=== PATIENT | female | born 1970 | race Caucasian/White ===

== ENCOUNTER 2017-03-30 00:03 | Inpatient (IN) | payer SELFPAY ==
[~2017-03-30] VITALS: Ht 160 cm; Wt 62.6 kg
--- NOTE | ~2017-03-30 | DS ---
Unit #: [id number] #: [id number] Patient: ROSSANA BALLESTEROS [id number] [facility] [address] [place] [address] [id number] MR#: [id number] NAME: ROSSANA BALLESTEROS ROOM: P110 Age: 47 Sex: F Admission Date: 03/31/2017 : 1970 Discharge Date: 04/03/2017 Attending Physician: Roberto Castro M.D. Primary Care Physician: Primary Care Physician No DISCHARGE SUMMARY REASON FOR ADMISSION Depression. DIAGNOSTIC STUDIES LABORATORY DATA: Unremarkable. HOSPITAL COURSE The patient was admitted to inpatient unit on March 31 and discharged on 04/03/2017. The patient was treated with group therapy, individual therapy, and medication management. The patient was responsive to treatment, showed improvement. Subsequently, the patient was discharged with a plan to follow up in outpatient program. DISCHARGE MEDICATIONS 1. Doxepin 100 mg at bedtime for sleep. 2. Vistaril 25 mg 3 times a day for anxiety. 3. Thorazine 50 mg 3 times a day for psychosis. DISCHARGE DIAGNOSES PSYCHIATRIC: Psychosis not otherwise specified, F29.0 Rule out bipolar mood disorder. Rule out substance abuse disorder. SECONDARY: Deferred. MEDICAL: None. STRESSORS: Psychosocial stressor. FOLLOWUP CARE The patient to follow up in outpatient clinic as per social media specialist. CONDITION ON DISCHARGE The patient pleasant, cooperative. Denied any psychotic symptom or any suicidal ideation. PROGNOSIS Guarded. DIET AND ACTIVITY As tolerated. Dictated by... Roberto Castro M.D. Unit #: [id number] #: [id number] Patient: ROSSANA BALLESTEROS SAJI/bzg TD: 04/04/2017 07:15 JOB #: [id number] DISCHARGE SUMMARY Page 1 of 1 X Roberto Castro MD X DISCHARGE SUMMARY
--- NOTE | ~2017-03-30 | HP ---
Unit #: [id number] #: [id number] Patient: ROSSANA BALLESTEROS [id number] [place] [address] [id number] MR#: [id number] NAME: ROSSANA BALLESTEROS ROOM: [facility] Age: 47 Sex: F Admission Date: 03/31/2017 : 1970 Attending Physician: Roberto Castro M.D. Admitting Physician: Roberto Castro M.D. Primary Care Physician: Primary Care Physician No HISTORY AND PHYSICAL HISTORY OF PRESENT ILLNESS Rossana is a 47 year old admitted to [address] [place] [address] with psychotic behavior. She is a poor historian so her history is taken from her chart. PAST MEDICAL HISTORY Nothing significant. PAST SURGICAL HISTORY Nothing reported. ALLERGIES No known drug allergies. SOCIAL HISTORY Smokes 2 packs per day. Denies alcohol and illicit drug use. FAMILY HISTORY Medically noncontributory. REVIEW OF SYSTEMS No reports of nausea, vomiting or diarrhea. She has had no cough or increased temperature. CURRENT MEDICATIONS 1. Trazodone 75 mg q.h.s. 2. Milk of Magnesia p.r.n. 3. Maalox p.r.n. 4. Tylenol p.r.n. 5. Thorazine 50 mg t.i.d. 6. Nicotine patch 21 mg daily. PHYSICAL EXAMINATION GENERAL: Alert, well-nourished, in no apparent distress. VITAL SIGNS: Blood pressure 144/88, heart rate 90, respirations 16, temperature 98.6. WEIGHT: 138. HEIGHT: 5 feet 3 inches. SKIN: Warm and dry without rash or lesion. HEENT: Normocephalic. TMs not viewed. Oral and nasal passages clear. Conjunctivae clear. PERRLA. EOMs intact. NECK: Supple without lymphadenopathy or thyromegaly. HEART: Regular rate and rhythm without murmur. LUNGS: Clear. Unit #: [id number] #: [id number] Patient: ROSSANA BALLESTEROS ABDOMEN: Soft, nontender. : Not done. EXTREMITIES: No evidence of cyanosis, clubbing or edema. Moves all without focal deficit. NEUROLOGICAL: Unable to complete extended exam. She does move all extremities without focal deficit. Hand nurse practitioner physician assistant is equal and gait is normal. IMPRESSION Psychiatric admission. RECOMMENDATIONS PSYCHIATRIC: Per psychiatrist. MEDICAL: See no contraindication to participate in facility's activities. MEDICAL PROGNOSIS Good. MEDICAL CONDITION Stable. Dictated by... April Oviedo P.A.-C. for Chayito Pacheco/magda TD: 04/01/2017 18:37 JOB #: [id number] HISTORY AND PHYSICAL Page 1 of 1 X April Oviedo X HISTORY AND PHYSICAL
--- NOTE | ~2017-03-30 | PN ---
Unit #: [id number] #: [id number] Patient: ROSSANA BALLESTEROS [id number] [facility] [address] [place] [address] [id number] MR#: [id number] NAME: ROSSANA BALLESTEROS ROOM: [facility] Age: 47 Sex: F Admission Date: 03/31/2017 : 1970 Attending Physician: Roberto Castro M.D. Admitting Physician: Roberto Castor M.D. Primary Care Physician: Primary Care Physician Keara MONTENEGRO PROGRESS NOTES DATE OF SERVICE 04/02/2017 DISCUSSION Ms. Parker is a 47-year-old female seen on 04/02/2017. Patient interviewed, chart reviewed. Obtained information from nursing staff. Patient's mood was labile. Patient was able to participate in some group, some paranoia, mood lability. Complete review of systems unremarkable. MENTAL STATUS EXAMINATION General appearance, patient dressed casually. Attention span and concentration fair. Oriented to place and person. Mood and affect labile. Speech monotone. Thought process circumstantial. Patient denied any thoughts of harming self or others. Recent and remote memory poor. Insight and judgement poor. DIAGNOSES 1. Psychosis NOS 2. Mood Disorder NOS. ASSESSMENT/PLAN Advise to continue with current medication and therapeutic protocol. If needed consider further adjustment of medication. Dictated by... Chayito Lee/nir TD: 04/03/2017 05:27 JOB #: [id number] Unit #: [id number] #: [id number] Patient: ROSSANA BALLESTEROS PROGRESS NOTES Page 1 of 1 X Roberto Castro MD X PROGRESS NOTE
--- NOTE | ~2017-03-30 | PN ---
Unit #: [id number] #: [id number] Patient: ROSSANA BALLESTEROS [id number] [facility] [address] [place] [address] [id number] MR#: [id number] NAME: ROSSANA BALLESTEROS ROOM: [facility] Age: 47 Sex: F Admission Date: 03/31/2017 : 1970 Attending Physician: Roberto Castro M.D. Admitting Physician: Roberto Castro M.D. Primary Care Physician: Primary Care Physician Keara MONTENEGRO PROGRESS NOTES DATE 04/01/2017 DISCUSSION Patient interviewed. Chart reviewed. Obtained information from nursing staff. Patient continues to be guarded, paranoid, rapid speech. Reported that the medication is a poison. Patient still having delusions, paranoia, mood lability, rapid speech. Patient is currently prescribed trazodone and Thorazine. Complete review of system unremarkable. MENTAL STATUS EXAMINATION General appearance, patient dressed casually. Attention span, concentration poor. Oriented in place and person. Mood and affect labile. Speech rapid, pressured. Thought process circumstantial, guarded, paranoid, delusional. Recent and remote memory poor. Insight and judgement poor. DIAGNOSES 1. Psychosis NOS. 2. Rule out major depressive disorder with psychotic features. 3. Rule out bipolar mood disorder. 4. Rule out substance abuse disorder. ASSESSMENT/PLAN Advised to continue with current medication and therapeutic protocol. If needed, consider further adjustment of medication. CBC, CMP, unremarkable at this time. Dictated by... Chayito Lee/magda TD: 04/01/2017 21:09 JOB #: [id number] Unit #: [id number] #: [id number] Patient: ROSSANA BALLESTEROS PROGRESS NOTES Page 1 of 1 X Roberto Castro MD PROGRESS NOTE
--- NOTE | ~2017-03-30 | PA ---
Unit #: [id number] #: [id number] Patient: ROSSANA BALLESTEROS [id number] [facility] [address] [place] [address] [id number] MR#: [id number] NAME: ROSSANA BALLESTEROS ROOM: [facility] Age: 47 Sex: F Admission Date: 03/31/2017 : 1970 Date of Assessment: 03/31/2017 Attending Physician: Roberto Castro M.D. Admitting Physician: Roberto Castro M.D. Primary Care Physician: Primary Care Physician No PSYCHIATRIC ASSESSMENT INFORMANTS The patient reliability, fair informant and chart reliability, good. CHIEF COMPLAINT Paranoia, "I fear everything. I'm afraid to smell things, eat things, help." HISTORY OF PRESENT ILLNESS Ms. Parker is a 46-year-old female, presented with the above-mentioned complaint. The patient reported that her paid 80,000 dollars to the [employer] to put a spell on her. The patient reports that her [facility] have been [facility]. The patient's checker cashier slowly reported to the patient that returns occur all the time. The patient reported that she now believes that her DNA is floating around in the city. The patient reports that she is afraid to go outside. The patient informed clinician angrily that she did not want the picture taken because someone may be looking at her. The patient denied any suicidal or homicidal ideation, but having severe psychotic symptom. The patient denied any use of any drugs or alcohol. Currently, on no medication. The patient feels that somebody has inserted a device in her brain. The patient needing inpatient admission at this time for psychiatric stabilization. PAST PSYCHIATRIC HISTORY Unknown for any history of any previous treatment. FAMILY HISTORY AND SOCIAL HISTORY The patient's family history is remarkable for history of substance abuse in son, now . Poor support system. No known history of any abuse. No legal charges. MEDICAL HISTORY Unremarkable for any chronic medical illness. Musculoskeletal; muscle strength and tone, no atrophy or abnormal movement. Gait normal. MEDICATION HISTORY None. ALLERGIES No known drug allergies. SUBSTANCE ABUSE HISTORY The patient smokes tobacco use, age of onset 14. No use of any alcohol or Unit #: [id number] #: [id number] Patient: ROSSANA BALLESTEROS street drugs. REVIEW OF SYSTEMS HEENT: Eyes, clear. Ears, nose, mouth, and throat; clear. CARDIOVASCULAR: Unremarkable. RESPIRATORY: Unremarkable. GI: Unremarkable. : Unremarkable. SKIN: Unremarkable. LYMPH NODE: Unremarkable. NEUROLOGIC: Unremarkable. ENDOCRINE: Unremarkable. HEMATOLOGIC: Unremarkable. ALLERGIC/IMMUNOLOGIC: Unremarkable. MUSCULOSKELETAL: Muscle strength and tone, no atrophy or abnormal movement. Gait normal. MENTAL STATUS EXAMINATION VITAL SIGNS: Temperature 97.3, respiratory rate 19, and blood pressure 144/89. Height 5 feet 3 inches and weight 138 pounds. GENERAL APPEARANCE: The patient dressed casually. The patient did not show any facial deformity. MUSCULOSKELETAL: Please see above. PSYCHIATRIC EXAMINATION Description of speech, rapid in rate. Description of thought process, circumstantial. Description of association, disorganized. Description of abnormal psychotic thinking; guarded, paranoid, and delusional, but denied any thoughts of harming self or others. Description of the patient's judgment: Concerning everyday activity, poor. Social situation, poor. Concerning psychiatric condition, poor. Complete mental status examination; oriented in time, place, and person. Recent and remote memory, fair. Attention span and concentration, fair. Language, able to name object and repeat phrases. Fund of knowledge, aware of current event and passive vocabulary intact. Mood and affect, sad and dysphoric. Insight and judgment, fair to poor. ASSETS AND LIABILITIES Assets, the patient is articulate and able to take care of her ADL. Liability, history of depression and psychosis. ADMITTING DIAGNOSES Psychiatric: Psychosis, not otherwise specified, F29.0; rule out substance abuse disorder; and rule out schizophrenia, chronic paranoid type, F20.0. Secondary diagnosis: Deferred. Medical diagnosis: None. Stressors: Psychosocial stressors. PSYCHIATRIC PLAN AND TREATMENT GOAL AND DISCHARGE PLAN 1. Advised to admit the patient on the inpatient unit. Provide safe, supportive, and structured environment. 2. Ordered labs; CBC, CMP, UA, UDS, and test. 3. Precaution for psychosis and aggression. Unit #: [id number] #: [id number] Patient: ROSSANA BALLESTEROS 4. Recommending Thorazine 50 mg t.i.d. and one dose now. Trazodone 75 mg q.h.s. p.r.n. for sleep. The patient to attend all the programing, group therapy, individual therapy, and structured milieu. If needed, consider further adjustment of medication. Treatment goal to attain euthymic mood, gain insight into her problem, and learn coping skills. DISCHARGE PLAN Plan to stabilize the patient and consider followup in outpatient program. ESTIMATED LENGTH OF STAY 3 to 5 days. Dictated by... Chayito Lee/michael TD: 03/31/2017 14:12 JOB #: [id number] PSYCHIATRIC ASSESSMENT Page 1 of 1 X Roberto Castro MD X PSYCHIATRIC ASSESSMENT
[2017-04-01 12:29] LABS: BASOPHIL# 0.1 X10e3 (0-0.3); BASOPHIL% 0.8 % (0-2.5); DIFF IND NO; EOSINOPHIL# 0.1 X10e3 (0-0.7); EOSINOPHIL% 1.1 % (0.0-7.0); HEMATOCRIT 42.7 % (35.0-45.0); HEMOGLOBIN 14.1 gm/dL (12.0-16.0); LYMPHOCYTE# 2.7 X10e3 (1.0-3.5); LYMPHOCYTE% 34.4 % (17.0-45.0); MEAN CELL VOLUME 91.5 FL (83-96); MEAN CORPUSCULAR HEMOGLOBIN 30.3 PG (28-34); MEAN CORPUSCULAR HGB CONC 33.1 g/dL (30-36); MEAN PLATELET VOLUME 9.5 FL (6.5-11.5); MONOCYTE# 0.7 X10e3 (0-1.0); MONOCYTE% 8.7 % (3.0-12.0); NEUTROPHIL# 4.3 X10e3 (1.5-7.1); PLATELET COUNT 285 X10e3 (140-420); RED BLOOD COUNT 4.67 X10e (3.90-5.30); RED CELL DISTRIBUTION WIDTH 12.3 % (11.0-15.5); WHITE BLOOD COUNT 7.9 X10e3 (4.0-10.5)
[2017-04-01 12:56] LABS: ALBUMIN SERUM 4.3 g/dL (3.5-5.0); BILIRUBIN,TOTAL 0.7 mg/dL (0.2-2.0); BUN/CREATININE RATIO 13.33; CREATININE SERUM 0.9 mg/dL (0.6-1.4); GLOM FILT RATE Estimated 75.1 mL/min (>60); POTASSIUM 4.3 mmol/L (3.5-5.1)
== END 2017-04-03 10:52 | disposition home or self-care (01) | DRG 885 ==
LOC: P1S 03-31 03:00 → P2L 03-31 03:00 → POF 03-31 03:00 → P2L 03-31 10:34 → P1S 04-01 14:08
PROVIDERS: Psychiatry & Neurology Psychiatry
DX: F29 Unspecified psychosis not due to a substance or known physiological condition (principal); F31.9 Bipolar disorder, unspecified; F17.210 Nicotine dependence, cigarettes, uncomplicated; F41.9 Anxiety disorder, unspecified
CPT/HCPCS: 80053; 84703; 85025